=== PATIENT | male | born 1980 | race Two or more races ===

== ENCOUNTER 2022-02-24 08:34 | Emergency (ER) | payer OTHER ==
[2022-02-24 08:51] VITALS: RESP 17; TEMP 98.8; BMI 21.6
[2022-02-24] MEDS ORDERED: ASPIRIN 81 MG CHEWABLE TABLETS PO ONE (09:47)
[2022-02-24] MEDS ORDERED: ASPIRIN 81 MG CHEWABLE TABLETS ONE (10:17)
[2022-02-24 10:53] LABS: EOS % 0.3 % (0-4.5); HEMATOCRIT 43.8 % (35.4-49); HEMOGLOBIN 14.7 GM/dL (11.7-16.9); LYMPH % 30.7 % (8-40); MCH 29.9 pg (25.7-33.7); MCHC 33.7 g/dl (32.0-35.9); MEAN CELL VOLUME 88.9 fl (80-96); MEAN PLT VOLUME 7.3 fl (7.5-11.1); MONO % 5.2 % (3.8-10.2); NEUT % 62.8 % (42.8-82.8); PLATELET COUNT 264 10^3/uL (134-434); RBC 4.93 M/mm3 (4.00-5.60); RDW 13.5 % (11.9-15.9); WHITE BLOOD COUNT 4.7 K/mm3 (4.0-10.0)
[2022-02-24 11:05] LABS: INR 0.97 (0.83-1.09); PROTHROMBIN TIME (PATIENT) 11.1 SEC (9.7-13.0)
[2022-02-24 11:07] LABS: ACTIVATED PTT 33.2 SECONDS (25.2-36.5)
[2022-02-24 11:16] LABS: ALBUMIN 4.2 g/dl (3.4-5.0); CALCIUM 9.2 mg/dL (8.5-10.1)
[2022-02-24 11:17] LABS: BLOOD UREA NITROGEN 11.8 mg/dL (7-18); MAGNESIUM 2.2 mg/dL (1.8-2.4)
[2022-02-24 11:19] LABS: CREATININE 0.8 mg/dL (0.55-1.3)
[2022-02-24 11:21] LABS: BILIRUBIN,TOTAL 1.1 mg/dL (0.2-1); TOT PROT 7.8 g/dl (6.4-8.2)
[2022-02-24 13:02] VITALS: BP 111/67; PULSE 59
== END 2022-02-24 12:40 | disposition home or self-care (01) ==
LOC: JER 08:34
DX: R00.2 Palpitations (principal)
CPT/HCPCS: 36415; 71046-TC-FY; 80053; 83735; 84443; 84484; 85025; 85610; 85730; 93005; 93010; 99285-25